=== PATIENT | male | born 1965 | race Caucasian/White ===

== ENCOUNTER 2018-07-26 05:32 | Emergency (ER) | payer BC ==
[~2018-07-26] VITALS: Ht 172.7 cm; Wt 91.2 kg
[2018-07-26 05:34] VITALS: Ht 172.7 cm; Wt 91.2 kg
[2018-07-26 07:10] LABS: BASOPHIL % 0.4 % (0-2); PLATELET COUNT 310 x10^3mcL (130-400)
[2018-07-26 07:19] LABS: CALCIUM 8.4 mg/dL (8.5-10.1); CARBON DIOXIDE 26.6 mmol/L (21-32); CHLORIDE SERUM 99 mmol/L (98-107); CREATININE SERUM 1.3 mg/dL (0.7-1.3); GFR1 > 60 mL/min; GLUCOSE SERUM 217 mg/dL (74-106); POTASSIUM SERUM 4.7 mmol/L (3.5-5.1); SODIUM SERUM 134 mmol/L (136-145)
[2018-07-26 07:24] LABS: ALBUMIN 3.4 g/dL (3.4-5.0); ALKALINE PHOSPHATASE 47 U/L (46-116); ALT/SGPT 28 U/L (16-63); AST/SGOT 6 U/L (15-37); BILIRUBIN TOTAL 0.33 mg/dL (0.20-1.00); LIPASE 290 IU/L (73-393); TOTAL PROTEIN, SERUM 7.3 g/dL (6.4-8.2)
[2018-07-26 09:49] VITALS: BP 141/84
== END 2018-07-26 09:49 | disposition home or self-care (01) ==
LOC: ED 05:32
PROVIDERS: Emergency Medicine
DX: K80.50 Calculus of bile duct without cholangitis or cholecystitis without obstruction (principal); I10 Essential (primary) hypertension; E11.9 Type 2 diabetes mellitus without complications
CPT/HCPCS: J2405; J3010; J7030; Q0092